=== PATIENT | female | born 1990 | race Two or more races ===

== ENCOUNTER 2021-09-18 11:07 | Inpatient (IN) | payer OTHER ==
[~2021-09-18] VITALS: Ht 157.5 cm; Wt 55.8 kg
[~2021-09-18 11:07] MED LIST: PYRIDIUM200 MG PO; SEPTRA DS TABLE1 TAB PO
== END 2021-09-21 13:46 | disposition home or self-care (01) | DRG 690 ==
LOC: ER 11:07 → EDBD 11:14 → MEDI 18:20
PROVIDERS: ADMIT Internal Medicine; ATTEND Internal Medicine
PROC: BT4JZZZ Ultrasonography of Kidneys and Bladder (ICD-10-PCS; principal; 2021-09-18)
DX: N39.0 Urinary tract infection, site not specified (principal); B34.9 Viral infection, unspecified